=== PATIENT | male | born 1940 ===

== ENCOUNTER 2021-02-02 22:20 | Emergency (ER) | payer MEDICARE, BC ==
[~2021-02-02] VITALS: Ht 170.2 cm; Wt 74.8 kg
[2021-02-03 00:09] VITALS: BP 131/56
== END 2021-02-03 00:04 | disposition home or self-care (01) ==
LOC: ER 22:23
DX: R55 Syncope and collapse (principal); R94.31 Abnormal electrocardiogram [ECG] [EKG]; I44.7 Left bundle-branch block, unspecified; D53.9 Nutritional anemia, unspecified; I70.0 Atherosclerosis of aorta; I12.9 Hypertensive chronic kidney disease with stage 1 through stage 4 chronic kidney disease, or unspecified chronic kidney disease; N18.9 Chronic kidney disease, unspecified; Z95.0 Presence of cardiac pacemaker; Z95.1 Presence of aortocoronary bypass graft; R00.1 Bradycardia, unspecified
CPT/HCPCS: A4663